=== PATIENT | female | born 1985 | race Hispanic/Latino ===

== ENCOUNTER → 2023-12-22 | Day surgery (SDC) | payer BC ==
[~2023-12-22] MED LIST: DEXMEDETOMIDINE HCL 200 MCG/2 ML VIAL ONE; FENTANYL CITRATE/PF 100MCG/2 ML INJ ONE; LIDOCAINE HCL 2% LOCAL INJ 5 ML SDV VIAL INJ ONE; METOCLOPRAMIDE HCL 10 MG/2ML VIAL ONE; PROPOFOL IV EMULSION 10 MG/ML 20 ML VIAL ONE
[2023-12-22] MEDS: LACTATED RINGER'S 1,000 ML ONE (12:02)
[2023-12-22 14:30] VITALS: TEMP 97
[2023-12-22 14:55] VITALS: BP 117/76; PULSE 84; RESP 18; O2SAT 98
== END | disposition home or self-care (01) ==
LOC: ENDO 11:52
PROVIDERS: ATTEND Internal Medicine Gastroenterology
DX: K20.90 Esophagitis, unspecified without bleeding (principal); K29.50 Unspecified chronic gastritis without bleeding; B96.81 Helicobacter pylori [H. pylori] as the cause of diseases classified elsewhere; K31.89 Other diseases of stomach and duodenum; K21.9 Gastro-esophageal reflux disease without esophagitis; K59.09 Other constipation; Z71.3 Dietary counseling and surveillance; D64.9 Anemia, unspecified; K80.20 Calculus of gallbladder without cholecystitis without obstruction; E66.01 Morbid (severe) obesity due to excess calories; R94.31 Abnormal electrocardiogram [ECG] [EKG]; R03.0 Elevated blood-pressure reading, without diagnosis of hypertension; Z71.89 Other specified counseling; F41.9 Anxiety disorder, unspecified; F32.A Depression, unspecified; Z68.32 Body mass index [BMI] 32.0-32.9, adult
CPT/HCPCS: 43239; 43450; 81025; J2001; J2470; J2704; J2765; J7121

== ENCOUNTER 2023-12-23 20:31 | Emergency (ER) | payer BC ==
[~2023-12-23] VITALS: Ht 172.7 cm; Wt 97.1 kg
[2023-12-23 20:41] VITALS: PULSE 88; RESP 18; TEMP 98.4; O2SAT 100
== END 2023-12-23 21:35 | disposition home or self-care (01) ==
LOC: ER 20:36
DX: J30.9 Allergic rhinitis, unspecified (principal); K21.9 Gastro-esophageal reflux disease without esophagitis
CPT/HCPCS: 99283